=== PATIENT | female | born 1990 | race American Indian/Alaskan Native ===

== ENCOUNTER 2020-09-18 19:19 | Inpatient (IN) | payer MEDICAID ==
--- NOTE | 2020-09-18 23:52 | Event Note ---
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 Further treatment and workup at subsequent clinical providers discretion. Patient/guardian urged not to elope from the ED as their condition may be serious if not clinically assessed and managed. Initial orders include: labs, urine, xr, ekg
--- NOTE | 2020-09-18 23:56 | XRay Report ---
CHEST 2 VIEWS INDICATION / CLINICAL INFORMATION: SOB and chest pain. COMPARISON: None available. FINDINGS: SUPPORT DEVICES: None. HEART / MEDIASTINUM: No significant abnormality. LUNGS / PLEURA: No significant pulmonary or pleural abnormality. No pneumothorax. ADDITIONAL FINDINGS: No significant additional findings. IMPRESSION: 1. No acute findings. Signer Name: Rhett Rudolph MD Signed: 09/18/2020 11:52 PM Workstation Name: [id number]
[2020-09-19 00:56] LABS: Basophils % (Auto) 0.3 % (0.0-1.8); Hematocrit 35.1 % (30.3-42.9); Hemoglobin 11.8 gm/dl (10.1-14.3); Lymphocytes # (Auto) 1.8 K/mm3 (1.2-5.4); Lymphocytes % (Auto) 40.5 % (13.4-35.0); Mean Corpuscular HGB Conc 34 % (30-34); Mean Corpuscular Volume 77 fl (79-97); Monocytes # (Auto) 0.7 K/mm3 (0.0-0.8); Platelet Count 188 K/mm3 (140-440); Red Blood Count 4.54 M/mm3 (3.65-5.03)
[2020-09-19 01:17] LABS: Alanine Aminotransferase 15 units/L (7-56); Albumin 4.3 g/dL (3.9-5); BUN/Creatinine Ratio 14; Blood Urea Nitrogen 11 mg/dL (7-17); Calcium 8.9 mg/dL (8.4-10.2); Hemolysis Index 0
[2020-09-19 01:54] LABS: Bilirubin,Urine NEG (Negative); Blood,Urine LG (Negative); Color,Urine Yellow (Yellow); Mucus,Urine FEW /HPF; Urobilinogen,Urine < 2.0 mg/dL (<2.0)
--- NOTE | 2020-09-19 02:50 | Emergency Department Report ---
<CHELSY GILL III - Last Filed: 09/19/20 05:27> ED Chest Pain HPI - General Chief Complaint: Chest Pain Stated Complaint: EMESIS/SOB/UNABLE TO EAT PUI?: No Time Seen by Provider: 09/18/20 23:47 - Related Data Home Medications Medication Instructions Recorded Confirmed Last Taken Ondansetron [Zofran Odt] 4 mg PO Q6H PRN 01/02/15 09/20/20 01/01/15 Previous Rx's Medication Instructions Recorded Last Taken Type Ascorbic Acid [Vitamin C chew] 500 mg PO BID #30 tab.chew 09/23/20 Unknown Rx Famotidine [Pepcid] 20 mg PO BID #30 tablet 09/23/20 Unknown Rx Zinc Sulfate 0 mg PO BID #30 capsule 09/23/20 Unknown Rx guaiFENesin [Robitussin] 5 ml PO Q4H PRN #1 bottle 09/23/20 Unknown Rx Allergies Allergy/AdvReac Type Severity Reaction Status Date / Time No Known Allergies Allergy Verified 01/02/15 13:22 ED Past Medical Hx - Medications Home Medications: Home Medications Medication Instructions Recorded Confirmed Last Taken Type Ondansetron [Zofran Odt] 4 mg PO Q6H PRN 01/02/15 09/20/20 01/01/15 History Ascorbic Acid [Vitamin C chew] 500 mg PO BID #30 tab.chew 09/23/20 Unknown Rx Famotidine [Pepcid] 20 mg PO BID #30 tablet 09/23/20 Unknown Rx Zinc Sulfate 0 mg PO BID #30 capsule 09/23/20 Unknown Rx guaiFENesin [Robitussin] 5 ml PO Q4H PRN #1 bottle 09/23/20 Unknown Rx ED Course - Reevaluation(s) Reevaluation #1: I reviewed the findings and management of this patient in real-time and I have personally seen and examined this patient and participated in the decision making for this patient with the midlevel. Patient is a 29-year-old female that presents emergency room for chest pain. Patient has a history of PR x2 at age 16. Patient has an elevated heart score. I evaluated the patient. Patient CV exam shows normal S1-S2. Patient's lung sounds are clear to auscultation. Patient's abdominal exam is negative. Patient's chest wall is nontender. Patient will have a CTA since the patient's D-dimer is elevated. 09/19/20 04:07 ED Medical Decision Making - Lab Data Result diagrams: 09/19/20 00:30 09/19/20 00:30 ED Disposition Clinical Impression: Urinary tract infection, Chest pain, Shortness of breath, Viral pneumonia Disposition: OP ADMIT IP TO THIS HOSP Condition: Stable <COLETTE VASQUEZ - Last Filed: 09/19/20 07:25> ED Chest Pain HPI - General Source: patient Mode of arrival: Ambulatory Limitations: No Limitations - History of Present Illness Initial Comments: 29-year-old -[place] female comes in complaining of shortness of breath with exertion, chest tightness cough with mucus production, nausea vomiting. Patient states that she cannot keep anything down. Patient reports she is vaccinated for Covid. She denies any abdominal pain no pelvic pain no urinary frequency urgency. She is currently on no control has not recently travel ed. She does have a significant past medical history of a heart attack at 16x3. Has a history of hypertension but is currently on no medications. She reports she has had a tubal ligation. She is 3 para to 3. Last menstrual period was 09/08/2020. MD Complaint: chest pain -: This morning Onset: during exertion Quality: tightness Improves With: nothing Worsens With: exertion re: nausea, vomting Other Symptoms: cough Treatments Prior to Arrival: none Aspirin use within the Past 7 Days: (0) No Heart Score - HEART Score History: Moderately suspicious EKG: Non-specific Age: < 45 Risk factors: > 3 risk factors or hx of atherosclerotic disease Troponin: < normal limit HEART Score: 4 - EKG Read Time Time EKG Completed: 22:45 EKG Read Time: 22:48 ED Review of Systems Comment: All other systems reviewed and negative ED Past Medical Hx - Past Medical History Previous Medical History?: Yes Hx Hypertension: Yes (PI) Hx Heart Attack/AMI: Yes (1999) Hx Congestive Heart Failure: ("left chamber of my heart was clogged.") Hx Diabetes: No Hx Deep Vein Thrombosis: No Hx Renal Disease: No Hx Sickle Cell Disease: No Hx Seizures: No Hx Asthma: No (hx of bronchitis) Hx HIV: No - Surgical History Past Surgical History?: Yes Additional Surgical History: D&C x 1 - Social History Smoking Status: Never Smoker ED Physical Exam - General Limitations: No Limitations General appearance: alert, in no apparent distress - Head Head exam: Present: atraumatic, normocephalic - Eye Eye exam: Present: normal appearance - ENT ENT exam: Present: mucous membranes moist, normal external ear exam - Neck Neck exam: Present: normal inspection, full ROM - Respiratory Respiratory exam: Present: normal lung sounds bilaterally. Absent: chest wall tenderness, accessory muscle use - Cardiovascular Cardiovascular Exam: Present: tachycardia - GI/Abdominal GI/Abdominal exam: Present: soft. Absent: distended, tenderness - Extremities Exam Extremities exam: Present: normal inspection, full ROM - Back Exam Back exam: Present: normal inspection - Neurological Exam Neurological exam: Present: alert, oriented X3, normal gait - Psychiatric Psychiatric exam: Present: normal affect, normal mood - Skin Skin exam: Present: warm, dry, intact, normal color. Absent: rash ED Course - Consultations Consultation #1: 09/19/20 07:27 Spoke with on-call hospitalist is excepted admission and asked to place it under Dr. Shu alcantar orders have been placed JIMENEZ score - Jimenez Score Age > 65: (0) No Aspirin use within the Past 7 Days: (0) No 3 or more CAD Risk Factors: (0) No 2 or more Angina events in past 24 hrs: (0) No Known CAD with more than 50% Stenosis: (0) No Elevated Cardiac Markers: (0) No ST Deviation Greater than 0.5mm: (0) No JIMENEZ Score: 0 ED Medical Decision Making - Lab Data Result diagrams: 09/19/20 00:30 09/19/20 00:30 Laboratory Tests 09/18/20 09/19/20 09/19/20 Unknown 00:30 00:30 WBC 4.4 L RBC 4.54 Hgb 11.8 Hct 35.1 MCV 77 L MCH 26 L MCHC 34 RDW 17.0 H Plt Count 188 Lymph % (Auto) 40.5 H [place] % (Auto) 16.0 H Eos % (Auto) 0.0 Baso % (Auto) 0.3 Lymph # (Auto) 1.8 [place] # (Auto) 0.7 Eos # (Auto) 0.0 Baso # (Auto) 0.0 Seg Neutrophils % 43.2 Seg Neutrophils # 1.9 D-Dimer 546.68 H Sodium Potassium Chloride Carbon Dioxide Anion Gap BUN Creatinine Estimated GFR BUN/Creatinine Ratio Glucose Calcium Total Bilirubin AST ALT Alkaline Phosphatase Troponin T NT-Pro-B Natriuret Pep Total Protein Albumin Albumin/Globulin Ratio Lipase HCG, Qual Urine Color Yellow Urine Turbidity Slightly-cloudy Urine pH 5.0 Ur Specific [place] 1.017 Urine Protein 30 mg/dl Urine Glucose (UA) Neg Urine Ketones Tr Urine Blood Lg Urine Nitrite Neg Urine Bilirubin Neg Urine Urobilinogen < 2.0 Ur Leukocyte Esterase Sm Urine WBC (Auto) 45.0 H Urine RBC (Auto) 10.0 U Epithel Cells (Auto) 12.0 Urine Mucus Few 09/19/20 09/19/20 09/19/20 00:30 00:30 00:30 WBC RBC Hgb Hct MCV MCH MCHC RDW Plt Count Lymph % (Auto) [place] % (Auto) Eos % (Auto) Baso % (Auto) Lymph # (Auto) [place] # (Auto) Eos # (Auto) Baso # (Auto) Seg Neutrophils % Seg Neutrophils # D-Dimer Sodium 137 Potassium 4.0 Chloride 101.3 Carbon Dioxide 22 Anion Gap 18 BUN 11 Creatinine 0.8 Estimated GFR > 60 BUN/Creatinine Ratio 14 Glucose 89 Calcium 8.9 Total Bilirubin 0.30 AST 24 ALT 15 Alkaline Phosphatase 52 Troponin T < 0.010 NT-Pro-B Natriuret Pep 121.2 Total Protein 8.3 H Albumin 4.3 Albumin/Globulin Ratio 1.1 Lipase 22 HCG, Qual Negative Urine Color Urine Turbidity Urine pH Ur Specific [place] Urine Protein Urine Glucose (UA) Urine Ketones Urine Blood Urine Nitrite Urine Bilirubin Urine Urobilinogen Ur Leukocyte Esterase Urine WBC (Auto) Urine RBC (Auto) U Epithel Cells (Auto) Urine Mucus - Radiology Data Radiology results: report reviewed [facility] [address] [place] [address] XRay Report Signed Patient: QIAN PRADO MR#: [id number] : 1990 Acct:[id number] Age/Sex: 29 / F ADM Date: 09/18/20 Loc: ED Attending Dr: Ordering Physician: ED MD RINA Date of Service: 09/18/20 Procedure(s): XR chest routine 2V Accession Number(s): [id number] cc: ED MD RINA Fluoro Time In Minutes: CHEST 2 VIEWS INDICATION / CLINICAL INFORMATION: SOB and chest pain. COMPARISON: None available. FINDINGS: SUPPORT DEVICES: None. HEART / MEDIASTINUM: No significant abnormality. LUNGS / PLEURA: No significant pulmonary or pleural abnormality. No pneumothorax. ADDITIONAL FINDINGS: No significant additional findings. IMPRESSION: 1. No acute findings. Signer Name: Rhett Rudolph MD Signed: 09/18/2020 11:52 PM Workstation Name: [id number] Transcribed By: DT Dictated By: Wai Rudolph MD Electronically Authenticated By: Wai Rudolph MD Signed Date/Time: 09/18/202351 DD/ 50 TD/TT: Study Comments [facility] [address] [place] [address] Cat Scan Report Signed Patient: QIAN PRADO MR#: [id number] : 1990 Acct:[id number] Age/Sex: 29 / F ADM Date: 09/18/20 Loc: ED Attending Dr: Ordering Physician: BUCK TORRES Date of Service: 09/19/20 Procedure(s): CT angio chest Accession Number(s): [id number] cc: BUCK TORRES CTA CHEST WITH CONTRAST INDICATION / CLINICAL INFORMATION: Shortness of breath chest pain / elevated D- dimer. TECHNIQUE: Axial CT images were obtained through the chest after injection of 100 mL Omnipaque 350 IV contrast. 3 plane MIP and/or 3D reconstructions were produced. All CT scans at this location are performed using CT dose reduction for ALARA by means of automated exposure control. COMPARISON: None available. FINDINGS: PULMONARY ARTERIES: No pulmonary emboli. THORACIC AORTA: No significant abnormality. HEART: No significant abnormality. CORONARY ARTERY CALCIFICATION: None. MEDIASTINUM / DOROTEO: No significant abnormality. PLEURA: No pleural effusion. No pneumothorax. LUNGS: Small, patchy, bibasilar groundglass densities. ADDITIONAL FINDINGS: None. UPPER ABDOMEN: No acute findings. SKELETAL STRUCTURES: No significant osseous abnormality. IMPRESSION: 1. No CT evidence for pulmonary embolism. 2. Bibasilar groundglass densities may represent early/mild atypical/viral pneumonia. Signer Name: Rhett Rudolph MD Signed: 09/19/2020 5:31 AM Workstation Name: [id number] Transcribed By: DT Dictated By: Wai Rudolph MD Electronically Authenticated By: Wai Rudolph MD Signed Date/Time: 09/19/20530 DD/ 8 TD/TT: Critical Care Time: Yes (35) ED Disposition Is pt being admited?: Yes Does the pt Need Aspirin: No <JAIME BUTCHER S - Last Filed: 09/26/20 07:58> ED Review of Systems ROS: Stated complaint: EMESIS/SOB/UNABLE TO EAT Other details as noted in HPI ED Course Vital Signs 09/18/20 09/19/20 09/19/20 22:39 07:33 09:56 Temperature 98.9 F Pulse Rate 99 H 76 81 Respiratory 18 Rate Blood Pressure 154/92 114/69 125/80 Blood Pressure [Right] O2 Sat by Pulse 98 99 99 Oximetry 09/19/20 09/20/20 13:19 00:22 Temperature 98.2 F Pulse Rate 80 85 Respiratory 16 Rate Blood Pressure Blood Pressure 125/80 131/51 [Right] O2 Sat by Pulse 99 100 Oximetry ED Medical Decision Making - Lab Data Result diagrams: 09/20/20 09:18 09/20/20 09:18 Critical care attestation.: If time is entered above; I have spent that time in minutes in the direct care of this critically ill patient, excluding procedure time.
[2020-09-19] MEDS ORDERED: ONDANSETRON 4 MG/2 ML INJ IV ONE (02:51)
[2020-09-19] MEDS ORDERED: SODIUM CHLORIDE 0.9% 1000 ML 1,000 ML IV ONE (02:51)
--- NOTE | 2020-09-19 05:36 | Cat Scan Report ---
CTA CHEST WITH CONTRAST INDICATION / CLINICAL INFORMATION: Shortness of breath chest pain / elevated D-dimer. TECHNIQUE: Axial CT images were obtained through the chest after injection of 100 mL Omnipaque 350 IV contrast. 3 plane MIP and/or 3D reconstructions were produced. All CT scans at this location are per formed using CT dose reduction for ALARA by means of automated exposure control. COMPARISON: None available. FINDINGS: PULMONARY ARTERIES: No pulmonary emboli. THORACIC AORTA: No significant abnormality. HEART: No significant abnormality. CORONARY ARTERY CALCIFICATION: None. MEDIASTINUM / DOROTEO: No significant abnormality. PLEURA: No pleural effusion. No pneumothorax. LUNGS: Small, patchy, bibasilar groundglass densities. ADDITIONAL FINDINGS: None. UPPER ABDOMEN: No acute findings. SKELETAL STRUCTURES: No significant osseous abnormality. IMPRESSION: 1. No CT evidence for pulmonary embolism. 2. Bibasilar groundglass densities may represent early/mild atypical/viral pneumonia. Signer Name: Rhett Rudolph MD Signed: 09/19/2020 5:31 AM Workstation Name: [id number]
--- NOTE | 2020-09-19 11:12 | Electrocardiograph Report ---
[facility] Test Date: 2020-09-18 Test Time: 22:46:44 Pat Name: QIAN PRADO Department: Room: [facility] Gender: F Manual Tester: REKHA : 1990 Requested By: CHELSY GILL III Order Number: [id number] Reading MD: Edgar Styles Measurements Intervals [place] Rate: 99 P: 64 NE: 149 QRS: 27 QRSD: 83 T: 36 QT: 359 QTc: 460 Interpretive Statements Sinus rhythm Probable left atrial enlargement Probable left ventricular hypertrophy No previous ECG available for comparison Electronically Signed On 09-19-2020 11:12:28 EDT by Edgar Styles
--- NOTE | 2020-09-20 07:15 | History and Physical Report ---
History of Present Illness Date of examination: 09/19/20 Date of admission: 09/19/20 07:28 Chief complaint: Nausea and vomiting for 1 day History of present illness: Patient has nausea and vomiting for 1 day. Vomited about 3-4 times. Also has chest pain. No shortness of breath. Chest pain is aggravated because of reflux. No diaphoresis. No radiation. No significant past medical history. Past History Past Medical History: No medical history Past Surgical History: No surgical history Social history: lives with family, full code Family history: hypertension Medications and Allergies Allergies Allergy/AdvReac Type Severity Reaction Status Date / Time No Known Allergies Allergy Verified 01/02/15 13:22 Home Medications Medication Instructions Recorded Confirmed Last Taken Type Vit-Fe Fumar-FA [ 1 tab PO QDAY #90 tablet 11/22/14 01/02/15 01/02/15 Rx Vitamin] Promethazine [Phenergan TAB] 25 mg PO Q6HR PRN #20 tab 11/22/14 01/02/15 01/01/15 Rx Nitrofurantoin [place]/M-Cryst 100 mg PO Q12HR #14 capsule 01/02/15 Unknown Rx [Macrobid CAP] Ondansetron [Zofran ODT TAB] 4 mg PO Q8HR #14 tab.rapdis 01/02/15 Unknown Rx Ondansetron [Zofran Odt] 4 mg PO Q6H PRN 01/02/15 01/02/15 01/01/15 History labetaloL [Normodyne TAB] 50 mg PO BID 01/02/15 01/02/15 12/12/14 History cephALEXin [Keflex] 500 mg PO Q12HR #20 cap 01/16/15 Unknown Rx Active Meds: Active Medications Acetaminophen (Acetaminophen 325 Mg Tab) 650 mg PO Q4H PRN PRN Reason: Pain MILD(1-3)/Fever >100.5/YOUNG Famotidine (Famotidine 20 Mg Tab) 20 mg PO BID [place] Heparin Sodium (Porcine) (Heparin 5,000 Unit/1 Ml Vial) 5,000 unit SUB-Q Q12HR [place] Hydromorphone HCl (Hydromorphone 1 Mg/1 Ml Inj) 0.5 mg IV Q3H PRN PRN Reason: Pain , Severe (7-10) Metoclopramide HCl (Metoclopramide 10 Mg/2 Ml Inj) 10 mg IV Q6H PRN PRN Reason: Nausea And Vomiting Ondansetron HCl (Ondansetron 4 Mg/2 Ml Inj) 4 mg IV Q8H PRN PRN Reason: Nausea And Vomiting Oxycodone/Acetaminophen (Oxycodone /Acetaminophen 5-325mg Tab) 1 tab PO Q6H PRN PRN Reason: Pain, Moderate (4-6) Sodium Chloride (Sodium Chloride 0.9% 10 Ml Flush Syringe) 10 ml IV BID [place] Sodium Chloride (Sodium Chloride 0.9% 10 Ml Flush Syringe) 10 ml IV PRN PRN PRN Reason: LINE FLUSH Review of Systems All systems: negative Exam - Constitutional Vitals: Temp Pulse Resp BP Pulse Ox 98.2 F 82 20 124/82 98 09/20/20 05:42 09/20/20 05:42 09/20/20 05:42 09/20/20 05:42 09/20/20 05:42 General appearance: Present: no acute distress, well-nourished - EENT Eyes: Present: PERRL ENT: hearing intact, clear oral mucosa - Neck Neck: Present: supple, normal ROM - Respiratory Respiratory effort: normal Respiratory: bilateral: CTA - Cardiovascular Heart rate: 78 Rhythm: regular Heart Sounds: Present: S1 & S2. Absent: rub, click - Extremities Extremities: pulses symmetrical, No edema Peripheral Pulses: within normal limits - Abdominal General gastrointestinal: Present: soft, non-tender, non-distended, normal bowel sounds Female genitourinary: Present: normal - Integumentary Integumentary: Present: clear, warm, dry - Musculoskeletal Musculoskeletal: gait normal, strength equal bilaterally - Psychiatric Psychiatric: appropriate mood/affect, intact judgment & insight - Neurologic Neurologic: CNII-XII intact, moves all extremities HEART Score - HEART Score EKG: Non-specific Age: < 45 Risk factors: > 3 risk factors or hx of atherosclerotic disease Troponin: Troponin T < 0.010 ng/mL (0.00-0.029) 09/19/20 00:30 Troponin: < normal limit Results - Labs CBC & Chem 7: 09/19/20 00:30 09/19/20 00:30 Labs: Laboratory Last Values WBC 4.4 K/mm3 (4.5-11.0) L 09/19/20 00:30 RBC 4.54 M/mm3 (3.65-5.03) 09/19/20 00:30 Hgb 11.8 gm/dl (10.1-14.3) 09/19/20 00:30 Hct 35.1 % (30.3-42.9) 09/19/20 00:30 MCV 77 fl (79-97) L 09/19/20 00:30 MCH 26 pg (28-32) L 09/19/20 00:30 MCHC 34 % (30-34) 09/19/20 00:30 RDW 17.0 % (13.2-15.2) H 09/19/20 00:30 Plt Count 188 K/mm3 (140-440) 09/19/20 00:30 Lymph % (Auto) 40.5 % (13.4-35.0) H 09/19/20 00:30 [place] % (Auto) 16.0 % (0.0-7.3) H 09/19/20 00:30 Eos % (Auto) 0.0 % (0.0-4.3) 09/19/20 00:30 Baso % (Auto) 0.3 % (0.0-1.8) 09/19/20 00:30 Lymph # (Auto) 1.8 K/mm3 (1.2-5.4) 09/19/20 00:30 [place] # (Auto) 0.7 K/mm3 (0.0-0.8) 09/19/20 00:30 Eos # (Auto) 0.0 K/mm3 (0.0-0.4) 09/19/20 00:30 Baso # (Auto) 0.0 K/mm3 (0.0-0.1) 09/19/20 00:30 Seg Neutrophils % 43.2 % (40.0-70.0) 09/19/20 00:30 Seg Neutrophils # 1.9 K/mm3 (1.8-7.7) 09/19/20 00:30 D-Dimer 546.68 ng/mlDDU (0-234) H 09/19/20 00:30 Sodium 137 mmol/L (137-145) 09/19/20 00:30 Potassium 4.0 mmol/L (3.6-5.0) 09/19/20 00:30 Chloride 101.3 mmol/L (98-107) 09/19/20 00:30 Carbon Dioxide 22 mmol/L (22-30) 09/19/20 00:30 Anion Gap 18 mmol/L 09/19/20 00:30 BUN 11 mg/dL (7-17) 09/19/20 00:30 Creatinine 0.8 mg/dL (0.6-1.2) 09/19/20 00:30 Estimated GFR > 60 ml/min 09/19/20 00:30 BUN/Creatinine Ratio 14 % 09/19/20 00:30 Glucose 89 mg/dL (65-100) 09/19/20 00:30 Calcium 8.9 mg/dL (8.4-10.2) 09/19/20 00:30 Total Bilirubin 0.30 mg/dL (0.1-1.2) 09/19/20 00:30 AST 24 units/L (5-40) 09/19/20 00:30 ALT 15 units/L (7-56) 09/19/20 00:30 Alkaline Phosphatase 52 units/L (35-129) 09/19/20 00:30 Troponin T < 0.010 ng/mL (0.00-0.029) 09/19/20 00:30 NT-Pro-B Natriuret Pep 121.2 pg/mL (0-450) 09/19/20 00:30 Total Protein 8.3 g/dL (6.3-8.2) H 09/19/20 00:30 Albumin 4.3 g/dL (3.9-5) 09/19/20 00:30 Albumin/Globulin Ratio 1.1 % 09/19/20 00:30 Lipase 22 units/L (13-60) 09/19/20 00:30 HCG, Qual Negative (Negative) 09/19/20 00:30 Urine Color Yellow (Yellow) 09/18/20 Unknown Urine Turbidity Slightly-cloudy (Clear) 09/18/20 Unknown Urine pH 5.0 (5.0-7.0) 09/18/20 Unknown Ur Specific [place] 1.017 (1.003-1.030) 09/18/20 Unknown Urine Protein 30 mg/dl mg/dL (Negative) 09/18/20 Unknown Urine Glucose (UA) Neg mg/dL (Negative) 09/18/20 Unknown Urine Ketones Tr mg/dL (Negative) 09/18/20 Unknown Urine Blood Lg (Negative) 09/18/20 Unknown Urine Nitrite Neg (Negative) 09/18/20 Unknown Urine Bilirubin Neg (Negative) 09/18/20 Unknown Urine Urobilinogen < 2.0 mg/dL (<2.0) 09/18/20 Unknown Ur Leukocyte Esterase Sm (Negative) 09/18/20 Unknown Urine WBC (Auto) 45.0 /HPF (0.0-6.0) H 09/18/20 Unknown Urine RBC (Auto) 10.0 /HPF (0.0-6.0) 09/18/20 Unknown U Epithel Cells (Auto) 12.0 /HPF (0-13.0) 09/18/20 Unknown Urine Mucus Few /HPF 09/18/20 Unknown Microbiology: Microbiology 09/18/20 Unknown Urine,Clean Catch Urine Culture - Preliminary Ness/IV: Voiding Method Toilet Assessment and Plan Advance Directives: Yes (Full code) - Patient Problems (1) Intractable nausea and vomiting Current Visit: Yes Status: Acute Plan to address problem: IV fluids IV Reglan and IV Zofran for now. IV famotidine. (2) Urinary tract infection Current Visit: Yes Status: Acute Qualifiers: Urinary tract infection type: acute cystitis Plan to address problem: On IV Rocephin for now (3) Chest pain Current Visit: Yes Status: Acute Plan to address problem: Secondary to reflux Discharge on Protonix (4) GERD (gastroesophageal reflux disease) Current Visit: Yes Status: Acute Qualifiers: Esophagitis presence: without esophagitis Qualified Code(s): K21.9 - Gastro-esophageal reflux disease without esophagitis Plan to address problem: On IV famotidine (5) DVT prophylaxis Current Visit: Yes Status: Acute Plan to address problem: On heparin and GI prophylaxis
[2020-09-20] MEDS ORDERED: oxyCODONE /ACETAMINOPHEN 5-325MG TAB PO PRN (08:00)
[2020-09-20] MEDS ORDERED: METOCLOPRAMIDE 10 MG/2 ML INJ IV PRN (08:00)
[2020-09-20] MEDS ORDERED: ACETAMINOPHEN 325 MG TAB PO PRN (08:00)
[2020-09-20] MEDS: HYDROmorphone 1 MG/1 ML INJ IV PRN ×2 (08:17→20:16)
[2020-09-20] MEDS: cefTRIAXone/NS 2 GM/100 ML 2 GM/100 ML BAG IV SCH (09:45)
[2020-09-20] MEDS: HEPARIN 5,000 UNIT/1 ML VIAL SUB-Q SCH ×2 (09:45→21:21)
[2020-09-20] MEDS ORDERED: FAMOTIDINE 20 MG TAB PO SCH (10:00)
[2020-09-20] MEDS ORDERED: FAMOTIDINE 20 MG/2 ML INJ IV SCH (10:00)
[2020-09-20 10:13] LABS: Hematocrit 33.2 % (30.3-42.9); Hemoglobin 11.1 gm/dl (10.1-14.3); Mean Corpuscular HGB Conc 34 % (30-34); Mean Corpuscular Volume 77 fl (79-97); Platelet Count 158 K/mm3 (140-440); Red Blood Count 4.33 M/mm3 (3.65-5.03)
--- NOTE | 2020-09-20 10:18 | Progress Note ---
Assessment and Plan Assessment and plan: --PUI; high suspicion for COVID-19 infection Current Visit: Yes Status: Acute Contact and droplet isolation, Martin PCR test sent pending report Continue supportive care If positive will consult ID - Intractable nausea and vomiting Current Visit: Yes Status: Acute Plan to address problem: IV fluids IV Reglan and IV Zofran for now. IV famotidine. -- Urinary tract infection Current Visit: Yes Status: Acute On IV Rocephin for now --Atypical chest pain Current Visit: Yes Status: Acute Secondary to reflux Discharge on Protonix --Elevated D-dimers; Current Visit: Yes Status: Acute CTA chest negative for PE Check lower extremity venous Doppler to rule out DVT --GERD (gastroesophageal reflux disease) Current Visit: Yes Status: Acute On IV Protonix --DVT prophylaxis Current Visit: Yes Status: Acute Subcu heparin and GI prophylaxis Closely monitor patient and adjust management as needed. Follow martin PCR test and adjust the management as needed Plan of care reviewed with the patient and her nurse History Interval history: I have observed strict isolation precautions and PPE protocols observed per COVID-19 guidelines Patient admitted as PUI to rule out COVID-19 Patient is cachectic. Mild shortness of breath Martin PCR test is sent pending report Patient is in isolation wearing mask No new complaints Vital signs noted Hospitalist Physical - Constitutional Vitals: Temp Pulse Resp BP Pulse Ox 98.3 F 72 18 122/81 95 09/20/20 08:19 09/20/20 08:19 09/20/20 08:19 09/20/20 08:19 09/20/20 08:40 General appearance: Present: no acute distress, well-nourished - EENT Eyes: Present: PERRL, EOM intact - Neck Neck: Present: supple, normal ROM - Respiratory Respiratory effort: normal Respiratory: bilateral: diminished, rhonchi, negative: rales, wheezing - Cardiovascular Rhythm: regular Heart Sounds: Present: S1 & S2 - Extremities Extremities: no ischemia, No edema - Abdominal General gastrointestinal: soft, non-tender, non-distended, normal bowel sounds - Integumentary Integumentary: Present: clear, warm - Psychiatric Psychiatric: appropriate mood/affect, cooperative - Neurologic Neurologic: CNII-XII intact, moves all extremities HEART Score - HEART Score EKG: Non-specific Age: < 45 Risk factors: > 3 risk factors or hx of atherosclerotic disease Troponin: Troponin T < 0.010 ng/mL (0.00-0.029) 09/19/20 00:30 Troponin: < normal limit Results - Labs CBC & Chem 7: 09/20/20 09:18 09/20/20 09:18 Labs: Laboratory Last Values WBC 3.5 K/mm3 (4.5-11.0) L 09/20/20 09:18 RBC 4.33 M/mm3 (3.65-5.03) 09/20/20 09:18 Hgb 11.1 gm/dl (10.1-14.3) 09/20/20 09:18 Hct 33.2 % (30.3-42.9) 09/20/20 09:18 MCV 77 fl (79-97) L 09/20/20 09:18 MCH 26 pg (28-32) L 09/20/20 09:18 MCHC 34 % (30-34) 09/20/20 09:18 RDW 17.0 % (13.2-15.2) H 09/20/20 09:18 Plt Count 158 K/mm3 (140-440) 09/20/20 09:18 Lymph % (Auto) 40.5 % (13.4-35.0) H 09/19/20 00:30 [place] % (Auto) Cash Application Clerk 09/20/20 09:18 Eos % (Auto) 0.0 % (0.0-4.3) 09/19/20 00:30 Baso % (Auto) 0.3 % (0.0-1.8) 09/19/20 00:30 Lymph # (Auto) 1.8 K/mm3 (1.2-5.4) 09/19/20 00:30 [place] # (Auto) 0.7 K/mm3 (0.0-0.8) 09/19/20 00:30 Eos # (Auto) 0.0 K/mm3 (0.0-0.4) 09/19/20 00:30 Baso # (Auto) 0.0 K/mm3 (0.0-0.1) 09/19/20 00:30 Seg Neutrophils % 43.2 % (40.0-70.0) 09/19/20 00:30 Seg Neutrophils # 1.9 K/mm3 (1.8-7.7) 09/19/20 00:30 D-Dimer 546.68 ng/mlDDU (0-234) H 09/19/20 00:30 Sodium 137 mmol/L (137-145) 09/19/20 00:30 Potassium 4.0 mmol/L (3.6-5.0) 09/19/20 00:30 Chloride 101.3 mmol/L (98-107) 09/19/20 00:30 Carbon Dioxide 22 mmol/L (22-30) 09/19/20 00:30 Anion Gap 18 mmol/L 09/19/20 00:30 BUN 11 mg/dL (7-17) 09/19/20 00:30 Creatinine 0.8 mg/dL (0.6-1.2) 09/19/20 00:30 Estimated GFR > 60 ml/min 09/19/20 00:30 BUN/Creatinine Ratio 14 % 09/19/20 00:30 Glucose 89 mg/dL (65-100) 09/19/20 00:30 Calcium 8.9 mg/dL (8.4-10.2) 09/19/20 00:30 Total Bilirubin 0.30 mg/dL (0.1-1.2) 09/19/20 00:30 AST 24 units/L (5-40) 09/19/20 00:30 ALT 15 units/L (7-56) 09/19/20 00:30 Alkaline Phosphatase 52 units/L (35-129) 09/19/20 00:30 Troponin T < 0.010 ng/mL (0.00-0.029) 09/19/20 00:30 NT-Pro-B Natriuret Pep 121.2 pg/mL (0-450) 09/19/20 00:30 Total Protein 8.3 g/dL (6.3-8.2) H 09/19/20 00:30 Albumin 4.3 g/dL (3.9-5) 09/19/20 00:30 Albumin/Globulin Ratio 1.1 % 09/19/20 00:30 Lipase 22 units/L (13-60) 09/19/20 00:30 HCG, Qual Negative (Negative) 09/19/20 00:30 Urine Color Yellow (Yellow) 09/18/20 Unknown Urine Turbidity Slightly-cloudy (Clear) 09/18/20 Unknown Urine pH 5.0 (5.0-7.0) 09/18/20 Unknown Ur Specific [place] 1.017 (1.003-1.030) 09/18/20 Unknown Urine Protein 30 mg/dl mg/dL (Negative) 09/18/20 Unknown Urine Glucose (UA) Neg mg/dL (Negative) 09/18/20 Unknown Urine Ketones Tr mg/dL (Negative) 09/18/20 Unknown Urine Blood Lg (Negative) 09/18/20 Unknown Urine Nitrite Neg (Negative) 09/18/20 Unknown Urine Bilirubin Neg (Negative) 09/18/20 Unknown Urine Urobilinogen < 2.0 mg/dL (<2.0) 09/18/20 Unknown Ur Leukocyte Esterase Sm (Negative) 09/18/20 Unknown Urine WBC (Auto) 45.0 /HPF (0.0-6.0) H 09/18/20 Unknown Urine RBC (Auto) 10.0 /HPF (0.0-6.0) 09/18/20 Unknown U Epithel Cells (Auto) 12.0 /HPF (0-13.0) 09/18/20 Unknown Urine Mucus Few /HPF 09/18/20 Unknown Microbiology: Microbiology 09/18/20 Unknown Urine,Clean Catch Urine Culture - Preliminary Ness/IV: Voiding Method Toilet Active Medications - Current Medications Current Medications: Generic Name Dose Route Start Last Admin Trade Name Freq PRN Reason Stop Dose Admin Acetaminophen 650 mg 09/20/20 08:00 Acetaminophen 325 Mg Tab PO Q4H PRN Pain MILD(1-3)/Fever >100.5/YOUNG Famotidine 20 mg 09/20/20 10:00 09/20/20 09:45 Famotidine 20 Mg/2 Ml Inj IV 20 mg BID RYLAND Administration Heparin Sodium (Porcine) 5,000 unit 09/20/20 10:00 09/20/20 09:45 Heparin 5,000 Unit/1 Ml Vial SUB-Q 5,000 unit Q12HR RYLAND Administration Hydromorphone HCl 0.5 mg 09/20/20 08:00 09/20/20 08:17 Hydromorphone 1 Mg/1 Ml Inj IV 0.5 mg Q3H PRN Administration Pain , Severe (7-10) Ceftriaxone Sodium 2 gm in 100 mls @ 200 mls/hr 09/20/20 10:00 09/20/20 09:45 Rocephin/Ns 2 Gm/100 Ml IV 200 mls/hr Q24H RYLAND Administration Protocol Labetalol HCl 50 mg 09/20/20 10:00 09/20/20 09:45 Labetalol 100 Mg Tab PO 50 mg BID RYLAND Administration Metoclopramide HCl 10 mg 09/20/20 08:00 Metoclopramide 10 Mg/2 Ml Inj IV Q6H PRN Nausea And Vomiting Ondansetron HCl 4 mg 09/20/20 08:00 Ondansetron 4 Mg/2 Ml Inj IV Q8H PRN Nausea And Vomiting Oxycodone/Acetaminophen 1 tab 09/20/20 08:00 Oxycodone /Acetaminophen 5-325mg Tab PO Q6H PRN Pain, Moderate (4-6) Sodium Chloride 10 ml 09/20/20 10:00 09/20/20 09:45 Sodium Chloride 0.9% 10 Ml Flush Syringe IV 10 ml BID RYLAND Administration Sodium Chloride 10 ml 09/20/20 07:07 Sodium Chloride 0.9% 10 Ml Flush Syringe IV PRN PRN LINE FLUSH
[2020-09-20 10:41] LABS: Creatine Kinase MB 1.8 ng/mL (0.0-4.0)
[2020-09-20] MEDS: ONDANSETRON 4 MG/2 ML INJ IV PRN ×2 (10:42→21:25)
[2020-09-20 10:50] LABS: Alanine Aminotransferase 13 units/L (7-56); Albumin 4.1 g/dL (3.9-5); BUN/Creatinine Ratio 16; Blood Urea Nitrogen 11 mg/dL (7-17); Hemolysis Index 0
[2020-09-20 10:57] LABS: Total Cells Counted 100
[2020-09-20 10:58] LABS: Anisocytosis 1+; Platelet Estimate Consistent w Auto
[2020-09-20 15:55] LABS: Creatine Kinase MB 1.7 ng/mL (0.0-4.0)
--- NOTE | 2020-09-20 15:58 | Event Note ---
Date: 09/20/20 Martin PCR test is positive for COVID-19.ID consult, requested inflammatory markers Continue contact and droplet isolation, transfer the patient to [facility][COVID- 19 floor] Patient's D-dimer is already high, CTA chest negative for PE, request lower extremity venous Doppler to rule out DVT Patient is not hypoxemic, will check resting and ambulatory room air O2 sats If hypoxemic we will start dexamethasone and remdesivir per protocol
--- NOTE | 2020-09-20 16:57 | Event Note ---
Date: 09/20/20 I called next of kin patient's mother Ms. Shashi Pettit at [phone] and discussed in detail patient's condition treatment plan tests and reports, I also encouraged the close family members to get tested for COVID-19 I answered all her questions and encouraged her to call back if she has any new concerns
[2020-09-20] MEDS: FAMOTIDINE 20 MG TAB PO SCH (21:25)
[2020-09-20 21:44] LABS: Creatine Kinase MB 1.8 ng/mL (0.0-4.0)
[2020-09-21 07:04] LABS: C-Reactive Protein 0.2 mg/dL (0.00-1.30)
[2020-09-21] MEDS: cefTRIAXone/NS 2 GM/100 ML 2 GM/100 ML BAG IV SCH (09:59)
[2020-09-21] MEDS: HEPARIN 5,000 UNIT/1 ML VIAL SUB-Q SCH ×2 (10:00→21:43)
[2020-09-21] MEDS: FAMOTIDINE 20 MG TAB PO SCH ×2 (10:01→21:42)
[2020-09-21] MEDS: HYDROmorphone 1 MG/1 ML INJ IV PRN (14:25)
--- NOTE | 2020-09-21 17:54 | Progress Note ---
Assessment and Plan Assessment and plan: I called next of kin patient's mother Ms. Shashi Pettit at [phone] and discussed in detail patient's condition treatment plan tests and reports, I also encouraged the close family members to get tested for COVID-19 I answered all her questions and encouraged her to call back if she has any new concerns --COVID-19 infection Current Visit: Yes Status: Acute Contact and droplet isolation, Donis PCR test positive Isolation precautions Patient is saturating well on room air No indication for dexamethasone No indication for remdesivir Check inflammatory markers ID consult - Intractable nausea and vomiting Current Visit: Yes Status: Acute Plan to address problem: IV fluids IV Reglan and IV Zofran for now. IV famotidine. -- Urinary tract infection Current Visit: Yes Status: Acute On IV Rocephin for now --Atypical chest pain Current Visit: Yes Status: Acute Secondary to reflux Discharge on Protonix --Elevated D-dimers; Current Visit: Yes Status: Acute CTA chest negative for PE Check lower extremity venous Doppler to rule out DVT --GERD (gastroesophageal reflux disease) Current Visit: Yes Status: Acute On IV Protonix --DVT prophylaxis Current Visit: Yes Status: Acute Subcu heparin and GI prophylaxis Closely monitor patient and adjust management as needed. Follow donis PCR test and adjust the management as needed Plan of care reviewed with the patient and her nurse History Interval history: I have seen the patient from a distance in her room Patient's chart medications tests and reports reviewed Strict isolation precautions and PPE protocols followed Patient feels slightly better Saturating well on room air Vital signs noted Hospitalist Physical - Physical exam Narrative exam: I have seen the patient from a distance in her room Discussed with her her condition tests and reports Limited examination to prevent disease transmission - Constitutional Vitals: Temp Pulse Resp BP Pulse Ox 98.3 F 99 H 20 118/76 99 09/21/20 12:15 09/21/20 12:15 09/21/20 12:15 09/21/20 12:15 09/21/20 12:15 General appearance: Present: no acute distress, well-nourished, other (Limited examination to prevent disease transmission) - EENT ENT: other (Limited examination to prevent disease transmission) - Neck Neck: Present: other (Limited examination to prevent disease transmission) - Respiratory Respiratory effort: other (Limited examination to prevent disease transmission) - Extremities Extremity abnormal: other (Limited examination to prevent disease transmission) - Abdominal General gastrointestinal: other (Limited examination to prevent disease transmission) - Neurologic Neurologic: other (Limited examination to prevent disease transmission) HEART Score - HEART Score EKG: Non-specific Age: < 45 Risk factors: > 3 risk factors or hx of atherosclerotic disease Troponin: Troponin T 0.011 ng/mL (0.00-0.029) 09/20/20 20:46 Troponin: < normal limit Results - Labs CBC & Chem 7: 09/20/20 09:18 09/20/20 09:18 Labs: Laboratory Last Values WBC 3.5 K/mm3 (4.5-11.0) L 09/20/20 09:18 RBC 4.33 M/mm3 (3.65-5.03) 09/20/20 09:18 Hgb 11.1 gm/dl (10.1-14.3) 09/20/20 09:18 Hct 33.2 % (30.3-42.9) 09/20/20 09:18 MCV 77 fl (79-97) L 09/20/20 09:18 MCH 26 pg (28-32) L 09/20/20 09:18 MCHC 34 % (30-34) 09/20/20 09:18 RDW 17.0 % (13.2-15.2) H 09/20/20 09:18 Plt Count 158 K/mm3 (140-440) 09/20/20 09:18 Lymph % (Auto) 40.5 % (13.4-35.0) H 09/19/20 00:30 Person % (Auto) Bariatric Coordinator 09/20/20 09:18 Eos % (Auto) 0.0 % (0.0-4.3) 09/19/20 00:30 Baso % (Auto) 0.3 % (0.0-1.8) 09/19/20 00:30 Lymph # (Auto) 1.8 K/mm3 (1.2-5.4) 09/19/20 00:30 Person # (Auto) 0.7 K/mm3 (0.0-0.8) 09/19/20 00:30 Eos # (Auto) 0.0 K/mm3 (0.0-0.4) 09/19/20 00:30 Baso # (Auto) 0.0 K/mm3 (0.0-0.1) 09/19/20 00:30 Add Manual Diff Complete 09/20/20 09:18 Total Counted 100 09/20/20 09:18 Seg Neutrophils % 43.2 % (40.0-70.0) 09/19/20 00:30 Seg Neuts % (Manual) 59.0 % (40.0-70.0) 09/20/20 09:18 Lymphocytes % (Manual) 21.0 % (13.4-35.0) 09/20/20 09:18 Monocytes % (Manual) 20.0 % (0.0-7.3) H 09/20/20 09:18 Nucleated RBC % Not Reportable 09/20/20 09:18 Seg Neutrophils # 1.9 K/mm3 (1.8-7.7) 09/19/20 00:30 Seg Neutrophils # Man 2.1 K/mm3 (1.8-7.7) 09/20/20 09:18 Band Neutrophils # 0.0 K/mm3 09/20/20 09:18 Lymphocytes # (Manual) 0.7 K/mm3 (1.2-5.4) L 09/20/20 09:18 Abs React Lymphs (Man) 0.0 K/mm3 09/20/20 09:18 Monocytes # (Manual) 0.7 K/mm3 (0.0-0.8) 09/20/20 09:18 Eosinophils # (Manual) 0.0 K/mm3 (0.0-0.4) 09/20/20 09:18 Basophils # (Manual) 0.0 K/mm3 (0.0-0.1) 09/20/20 09:18 Metamyelocytes # 0.0 K/mm3 09/20/20 09:18 Myelocytes # 0.0 K/mm3 09/20/20 09:18 Promyelocytes # 0.0 K/mm3 09/20/20 09:18 Blast Cells # 0.0 K/mm3 09/20/20 09:18 WBC Morphology Not Reportable 09/20/20 09:18 Hypersegmented Neuts Not Reportable 09/20/20 09:18 Hyposegmented Neuts Not Reportable 09/20/20 09:18 Hypogranular Neuts Not Reportable 09/20/20 09:18 Smudge Cells Not Reportable 09/20/20 09:18 Toxic Granulation Not Reportable 09/20/20 09:18 Toxic Vacuolation Not Reportable 09/20/20 09:18 Dohle Bodies Not Reportable 09/20/20 09:18 Pelger-Huet Anomaly Not Reportable 09/20/20 09:18 Sidney Rods Not Reportable 09/20/20 09:18 Platelet Estimate Consistent w auto 09/20/20 09:18 Clumped Platelets Not Reportable 09/20/20 09:18 Plt Clumps, EDTA Not Reportable 09/20/20 09:18 Large Platelets Not Reportable 09/20/20 09:18 Giant Platelets Not Reportable 09/20/20 09:18 Platelet Satelliting Not Reportable 09/20/20 09:18 Plt Morphology Comment Not Reportable 09/20/20 09:18 RBC Morphology Not Reportable 09/20/20 09:18 Dimorphic RBCs Not Reportable 09/20/20 09:18 Polychromasia Not Reportable 09/20/20 09:18 Hypochromasia Not Reportable 09/20/20 09:18 Poikilocytosis Not Reportable 09/20/20 09:18 Anisocytosis 1+ 09/20/20 09:18 Microcytosis Not Reportable 09/20/20 09:18 Macrocytosis Not Reportable 09/20/20 09:18 Spherocytes Not Reportable 09/20/20 09:18 Pappenheimer Bodies Not Reportable 09/20/20 09:18 Sickle Cells Not Reportable 09/20/20 09:18 Target Cells Not Reportable 09/20/20 09:18 Tear Drop Cells Not Reportable 09/20/20 09:18 Ovalocytes Not Reportable 09/20/20 09:18 Helmet Cells Not Reportable 09/20/20 09:18 [place] Bodies Not Reportable 09/20/20 09:18 [place] Rings Not Reportable 09/20/20 09:18 Viki Cells Not Reportable 09/20/20 09:18 Bite Cells Not Reportable 09/20/20 09:18 Crenated Cell Not Reportable 09/20/20 09:18 Elliptocytes Not Reportable 09/20/20 09:18 Acanthocytes (Spur) Not Reportable 09/20/20 09:18 Rouleaux Not Reportable 09/20/20 09:18 Hemoglobin C Crystals Not Reportable 09/20/20 09:18 Schistocytes Not Reportable 09/20/20 09:18 Malaria parasites Not Reportable 09/20/20 09:18 [place] Bodies Not Reportable 09/20/20 09:18 Hem Pathologist Commnt No 09/20/20 09:18 D-Dimer 475.91 ng/mlDDU (0-234) H 09/21/20 05:36 Sodium 139 mmol/L (137-145) 09/20/20 09:18 Potassium 3.9 mmol/L (3.6-5.0) 09/20/20 09:18 Chloride 101.1 mmol/L (98-107) 09/20/20 09:18 Carbon Dioxide 27 mmol/L (22-30) 09/20/20 09:18 Anion Gap 15 mmol/L 09/20/20 09:18 BUN 11 mg/dL (7-17) 09/20/20 09:18 Creatinine 0.7 mg/dL (0.6-1.2) 09/20/20 09:18 Estimated GFR > 60 ml/min 09/20/20 09:18 BUN/Creatinine Ratio 16 % 09/20/20 09:18 Glucose 74 mg/dL (65-100) 09/20/20 09:18 Hemoglobin A1c 5.1 % (4-6) 09/20/20 09:18 Calcium 9.0 mg/dL (8.4-10.2) 09/20/20 09:18 Ferritin 32.0 ng/mL (10.0-200.0) 09/21/20 05:36 Total Bilirubin 0.50 mg/dL (0.1-1.2) 09/20/20 09:18 AST 25 units/L (5-40) 09/20/20 09:18 ALT 13 units/L (7-56) 09/20/20 09:18 Alkaline Phosphatase 48 units/L (35-129) 09/20/20 09:18 Lactate Dehydrogenase 189 units/L (91-180) H 09/21/20 05:36 Total Creatine Kinase 117 units/L (30-135) 09/20/20 20:46 CK-MB (CK-2) 1.8 ng/mL (0.0-4.0) 09/20/20 20:46 CK-MB (CK-2) Rel Index 1.5 (0-4) 09/20/20 20:46 Troponin T 0.011 ng/mL (0.00-0.029) 09/20/20 20:46 C-Reactive Protein 0.20 mg/dL (0.00-1.30) 09/21/20 05:36 NT-Pro-B Natriuret Pep 121.2 pg/mL (0-450) 09/19/20 00:30 Total Protein 7.1 g/dL (6.3-8.2) 09/20/20 09:18 Albumin 4.1 g/dL (3.9-5) 09/20/20 09:18 Albumin/Globulin Ratio 1.4 % 09/20/20 09:18 Lipase 22 units/L (13-60) 09/19/20 00:30 HCG, Qual Negative (Negative) 09/19/20 00:30 Urine Color Yellow (Yellow) 09/18/20 Unknown Urine Turbidity Slightly-cloudy (Clear) 09/18/20 Unknown Urine pH 5.0 (5.0-7.0) 09/18/20 Unknown Ur Specific [place] 1.017 (1.003-1.030) 09/18/20 Unknown Urine Protein 30 mg/dl mg/dL (Negative) 09/18/20 Unknown Urine Glucose (UA) Neg mg/dL (Negative) 09/18/20 Unknown Urine Ketones Tr mg/dL (Negative) 09/18/20 Unknown Urine Blood Lg (Negative) 09/18/20 Unknown Urine Nitrite Neg (Negative) 09/18/20 Unknown Urine Bilirubin Neg (Negative) 09/18/20 Unknown Urine Urobilinogen < 2.0 mg/dL (<2.0) 09/18/20 Unknown Ur Leukocyte Esterase Sm (Negative) 09/18/20 Unknown Urine WBC (Auto) 45.0 /HPF (0.0-6.0) H 09/18/20 Unknown Urine RBC (Auto) 10.0 /HPF (0.0-6.0) 09/18/20 Unknown U Epithel Cells (Auto) 12.0 /HPF (0-13.0) 09/18/20 Unknown Urine Mucus Few /HPF 09/18/20 Unknown Coronavirus (PCR) Positive (Negative) A 09/20/20 08:37 Microbiology: Microbiology 09/18/20 Unknown Urine,Clean Catch Urine Culture - Final Klebsiella Pneumoniae Ness/IV: Voiding Method Toilet Active Medications - Current Medications Current Medications: Generic Name Dose Route Start Last Admin Trade Name Freq PRN Reason Stop Dose Admin Acetaminophen 650 mg 09/20/20 08:00 Acetaminophen 325 Mg Tab PO Q4H PRN Pain MILD(1-3)/Fever >100.5/YOUNG Famotidine 20 mg 09/20/20 22:00 09/21/20 10:01 Famotidine 20 Mg Tab PO 20 mg BID RYLAND Administration Heparin Sodium (Porcine) 5,000 unit 09/20/20 10:00 09/21/20 10:00 Heparin 5,000 Unit/1 Ml Vial SUB-Q 5,000 unit Q12HR RYLAND Administration Hydromorphone HCl 0.5 mg 09/20/20 08:00 09/21/20 14:25 Hydromorphone 1 Mg/1 Ml Inj IV 0.5 mg Q3H PRN Administration Pain , Severe (7-10) Ceftriaxone Sodium 2 gm in 100 mls @ 200 mls/hr 09/20/20 10:00 09/21/20 09:59 Rocephin/Ns 2 Gm/100 Ml IV 200 mls/hr Q24H RYLAND Administration Protocol Metoclopramide HCl 10 mg 09/20/20 08:00 Metoclopramide 10 Mg/2 Ml Inj IV Q6H PRN Nausea And Vomiting Ondansetron HCl 4 mg 09/20/20 08:00 09/20/20 21:25 Ondansetron 4 Mg/2 Ml Inj IV 4 mg Q8H PRN Administration Nausea And Vomiting Oxycodone/Acetaminophen 1 tab 09/20/20 08:00 Oxycodone /Acetaminophen 5-325mg Tab PO Q6H PRN Pain, Moderate (4-6) Sodium Chloride 10 ml 09/20/20 10:00 09/21/20 10:01 Sodium Chloride 0.9% 10 Ml Flush Syringe IV 10 ml BID RYLAND Administration Sodium Chloride 10 ml 09/20/20 07:07 Sodium Chloride 0.9% 10 Ml Flush Syringe IV PRN PRN LINE FLUSH
--- NOTE | 2020-09-22 08:22 | Progress Note ---
Assessment and Plan Assessment and plan: Patient is saturating well on room air No supplemental oxygen needed --COVID-19 infection Current Visit: Yes Status: Acute Contact and droplet isolation, Donis PCR test positive Isolation precautions Patient is saturating well on room air No indication for dexamethasone No indication for remdesivir Check inflammatory markers ID consult - Intractable nausea and vomiting Current Visit: Yes Status: Acute IV fluids , IV Zofran IV famotidine. Symptoms slightly improved --Sepsis due to urinary tract infection Current Visit: Yes Status: Acute Cultures positive for Klebsiella pneumonia, pansensitive Continue Rocephin, ID following --Atypical chest pain Current Visit: Yes Status: Acute Secondary to reflux Discharge on Protonix --Elevated D-dimers; Current Visit: Yes Status: Acute CTA chest negative for PE Pending lower extremity venous Doppler to rule out DVT --GERD (gastroesophageal reflux disease) Current Visit: Yes Status: Acute On IV Protonix --DVT prophylaxis Current Visit: Yes Status: Acute Subcu heparin and GI prophylaxis Closely monitor patient and adjust management as needed. Follow donis PCR test and adjust the management as needed Plan of care reviewed with the patient and her nurse I called next of kin patient's mother Ms. Shashi Pettit at [phone] and discussed in detail patient's condition treatment plan tests and reports, I also encouraged the close family members to get tested for COVID-19 I answered all her questions and encouraged her to call back if she has any new concerns 09/21/2020; Patient feels slightly better, saturating well room air 100% No indication for remdesivir, dexamethasone and supplemental oxygen However quick check for home O2 prior to discharge 09/22/2020; Patient sats well on room air CTA chest negative for PE Pending LE Doppler study History Interval history: I have seen and examined the patient at the bedside this morning Patient is COVID-19 positive, on contact and droplet isolation Strict isolation precautions and PPE protocols followed per COVID-19 guidelines While evaluating this patient today Patient complains of some nausea Complains of generalized weakness Saturating well on room air Vital signs noted Hospitalist Physical - Constitutional Vitals: Temp Pulse Resp BP Pulse Ox 98.3 F 62 18 131/83 100 09/22/20 06:02 09/22/20 06:00 09/22/20 06:02 09/22/20 06:02 09/22/20 08:03 General appearance: Present: no acute distress, well-nourished, other (Saturating well on room air) - EENT Eyes: Present: PERRL, EOM intact - Neck Neck: Present: supple, normal ROM - Respiratory Respiratory effort: normal Respiratory: bilateral: diminished, rhonchi, negative: rales, wheezing - Cardiovascular Rhythm: regular Heart Sounds: Present: S1 & S2 - Extremities Extremities: no ischemia, No edema - Abdominal General gastrointestinal: soft, non-tender, non-distended, normal bowel sounds - Integumentary Integumentary: Present: clear, warm - Psychiatric Psychiatric: appropriate mood/affect, cooperative - Neurologic Neurologic: moves all extremities HEART Score - HEART Score EKG: Non-specific Age: < 45 Risk factors: > 3 risk factors or hx of atherosclerotic disease Troponin: Troponin T 0.011 ng/mL (0.00-0.029) 09/20/20 20:46 Troponin: < normal limit Results - Labs CBC & Chem 7: 09/20/20 09:18 09/20/20 09:18 Labs: Laboratory Last Values WBC 3.5 K/mm3 (4.5-11.0) L 09/20/20 09:18 RBC 4.33 M/mm3 (3.65-5.03) 09/20/20 09:18 Hgb 11.1 gm/dl (10.1-14.3) 09/20/20 09:18 Hct 33.2 % (30.3-42.9) 09/20/20 09:18 MCV 77 fl (79-97) L 09/20/20 09:18 MCH 26 pg (28-32) L 09/20/20 09:18 MCHC 34 % (30-34) 09/20/20 09:18 RDW 17.0 % (13.2-15.2) H 09/20/20 09:18 Plt Count 158 K/mm3 (140-440) 09/20/20 09:18 Lymph % (Auto) 40.5 % (13.4-35.0) H 09/19/20 00:30 [place] % (Auto) Auditing Clerk 09/20/20 09:18 Eos % (Auto) 0.0 % (0.0-4.3) 09/19/20 00:30 Baso % (Auto) 0.3 % (0.0-1.8) 09/19/20 00:30 Lymph # (Auto) 1.8 K/mm3 (1.2-5.4) 09/19/20 00:30 [place] # (Auto) 0.7 K/mm3 (0.0-0.8) 09/19/20 00:30 Eos # (Auto) 0.0 K/mm3 (0.0-0.4) 09/19/20 00:30 Baso # (Auto) 0.0 K/mm3 (0.0-0.1) 09/19/20 00:30 Add Manual Diff Complete 09/20/20 09:18 Total Counted 100 09/20/20 09:18 Seg Neutrophils % 43.2 % (40.0-70.0) 09/19/20 00:30 Seg Neuts % (Manual) 59.0 % (40.0-70.0) 09/20/20 09:18 Lymphocytes % (Manual) 21.0 % (13.4-35.0) 09/20/20 09:18 Monocytes % (Manual) 20.0 % (0.0-7.3) H 09/20/20 09:18 Nucleated RBC % Not Reportable 09/20/20 09:18 Seg Neutrophils # 1.9 K/mm3 (1.8-7.7) 09/19/20 00:30 Seg Neutrophils # Man 2.1 K/mm3 (1.8-7.7) 09/20/20 09:18 Band Neutrophils # 0.0 K/mm3 09/20/20 09:18 Lymphocytes # (Manual) 0.7 K/mm3 (1.2-5.4) L 09/20/20 09:18 Abs React Lymphs (Man) 0.0 K/mm3 09/20/20 09:18 Monocytes # (Manual) 0.7 K/mm3 (0.0-0.8) 09/20/20 09:18 Eosinophils # (Manual) 0.0 K/mm3 (0.0-0.4) 09/20/20 09:18 Basophils # (Manual) 0.0 K/mm3 (0.0-0.1) 09/20/20 09:18 Metamyelocytes # 0.0 K/mm3 09/20/20 09:18 Myelocytes # 0.0 K/mm3 09/20/20 09:18 Promyelocytes # 0.0 K/mm3 09/20/20 09:18 Blast Cells # 0.0 K/mm3 09/20/20 09:18 WBC Morphology Not Reportable 09/20/20 09:18 Hypersegmented Neuts Not Reportable 09/20/20 09:18 Hyposegmented Neuts Not Reportable 09/20/20 09:18 Hypogranular Neuts Not Reportable 09/20/20 09:18 Smudge Cells Not Reportable 09/20/20 09:18 Toxic Granulation Not Reportable 09/20/20 09:18 Toxic Vacuolation Not Reportable 09/20/20 09:18 Dohle Bodies Not Reportable 09/20/20 09:18 Pelger-Huet Anomaly Not Reportable 09/20/20 09:18 [place] Rods Not Reportable 09/20/20 09:18 Platelet Estimate Consistent w auto 09/20/20 09:18 Clumped Platelets Not Reportable 09/20/20 09:18 Plt Clumps, EDTA Not Reportable 09/20/20 09:18 Large Platelets Not Reportable 09/20/20 09:18 Giant Platelets Not Reportable 09/20/20 09:18 Platelet Satelliting Not Reportable 09/20/20 09:18 Plt Morphology Comment Not Reportable 09/20/20 09:18 RBC Morphology Not Reportable 09/20/20 09:18 Dimorphic RBCs Not Reportable 09/20/20 09:18 Polychromasia Not Reportable 09/20/20 09:18 Hypochromasia Not Reportable 09/20/20 09:18 Poikilocytosis Not Reportable 09/20/20 09:18 Anisocytosis 1+ 09/20/20 09:18 Microcytosis Not Reportable 09/20/20 09:18 Macrocytosis Not Reportable 09/20/20 09:18 Spherocytes Not Reportable 09/20/20 09:18 Pappenheimer Bodies Not Reportable 09/20/20 09:18 Sickle Cells Not Reportable 09/20/20 09:18 Target Cells Not Reportable 09/20/20 09:18 Tear Drop Cells Not Reportable 09/20/20 09:18 Ovalocytes Not Reportable 09/20/20 09:18 Helmet Cells Not Reportable 09/20/20 09:18 [place] Bodies Not Reportable 09/20/20 09:18 [place] Rings Not Reportable 09/20/20 09:18 [place] Cells Not Reportable 09/20/20 09:18 Bite Cells Not Reportable 09/20/20 09:18 Crenated Cell Not Reportable 09/20/20 09:18 Elliptocytes Not Reportable 09/20/20 09:18 Acanthocytes (Spur) Not Reportable 09/20/20 09:18 Rouleaux Not Reportable 09/20/20 09:18 Hemoglobin C Crystals Not Reportable 09/20/20 09:18 Schistocytes Not Reportable 09/20/20 09:18 Malaria parasites Not Reportable 09/20/20 09:18 [place] Bodies Not Reportable 09/20/20 09:18 Hem Pathologist Commnt No 09/20/20 09:18 D-Dimer 475.91 ng/mlDDU (0-234) H 09/21/20 05:36 Sodium 139 mmol/L (137-145) 09/20/20 09:18 Potassium 3.9 mmol/L (3.6-5.0) 09/20/20 09:18 Chloride 101.1 mmol/L (98-107) 09/20/20 09:18 Carbon Dioxide 27 mmol/L (22-30) 09/20/20 09:18 Anion Gap 15 mmol/L 09/20/20 09:18 BUN 11 mg/dL (7-17) 09/20/20 09:18 Creatinine 0.7 mg/dL (0.6-1.2) 09/20/20 09:18 Estimated GFR > 60 ml/min 09/20/20 09:18 BUN/Creatinine Ratio 16 % 09/20/20 09:18 Glucose 74 mg/dL (65-100) 09/20/20 09:18 Hemoglobin A1c 5.1 % (4-6) 09/20/20 09:18 Calcium 9.0 mg/dL (8.4-10.2) 09/20/20 09:18 Ferritin 32.0 ng/mL (10.0-200.0) 09/21/20 05:36 Total Bilirubin 0.50 mg/dL (0.1-1.2) 09/20/20 09:18 AST 25 units/L (5-40) 09/20/20 09:18 ALT 13 units/L (7-56) 09/20/20 09:18 Alkaline Phosphatase 48 units/L (35-129) 09/20/20 09:18 Lactate Dehydrogenase 189 units/L (91-180) H 09/21/20 05:36 Total Creatine Kinase 117 units/L (30-135) 09/20/20 20:46 CK-MB (CK-2) 1.8 ng/mL (0.0-4.0) 09/20/20 20:46 CK-MB (CK-2) Rel Index 1.5 (0-4) 09/20/20 20:46 Troponin T 0.011 ng/mL (0.00-0.029) 09/20/20 20:46 C-Reactive Protein 0.20 mg/dL (0.00-1.30) 09/21/20 05:36 NT-Pro-B Natriuret Pep 121.2 pg/mL (0-450) 09/19/20 00:30 Total Protein 7.1 g/dL (6.3-8.2) 09/20/20 09:18 Albumin 4.1 g/dL (3.9-5) 09/20/20 09:18 Albumin/Globulin Ratio 1.4 % 09/20/20 09:18 Lipase 22 units/L (13-60) 09/19/20 00:30 HCG, Qual Negative (Negative) 09/19/20 00:30 Urine Color Yellow (Yellow) 09/18/20 Unknown Urine Turbidity Slightly-cloudy (Clear) 09/18/20 Unknown Urine pH 5.0 (5.0-7.0) 09/18/20 Unknown Ur Specific [place] 1.017 (1.003-1.030) 09/18/20 Unknown Urine Protein 30 mg/dl mg/dL (Negative) 09/18/20 Unknown Urine Glucose (UA) Neg mg/dL (Negative) 09/18/20 Unknown Urine Ketones Tr mg/dL (Negative) 09/18/20 Unknown Urine Blood Lg (Negative) 09/18/20 Unknown Urine Nitrite Neg (Negative) 09/18/20 Unknown Urine Bilirubin Neg (Negative) 09/18/20 Unknown Urine Urobilinogen < 2.0 mg/dL (<2.0) 09/18/20 Unknown Ur Leukocyte Esterase Sm (Negative) 09/18/20 Unknown Urine WBC (Auto) 45.0 /HPF (0.0-6.0) H 09/18/20 Unknown Urine RBC (Auto) 10.0 /HPF (0.0-6.0) 09/18/20 Unknown U Epithel Cells (Auto) 12.0 /HPF (0-13.0) 09/18/20 Unknown Urine Mucus Few /HPF 09/18/20 Unknown Coronavirus (PCR) Positive (Negative) A 09/20/20 08:37 Microbiology: Microbiology 09/18/20 Unknown Urine,Clean Catch Urine Culture - Final Klebsiella Pneumoniae Ness/IV: Voiding Method Toilet Active Medications - Current Medications Current Medications: Generic Name Dose Route Start Last Admin Trade Name Freq PRN Reason Stop Dose Admin Acetaminophen 650 mg 09/20/20 08:00 Acetaminophen 325 Mg Tab PO Q4H PRN Pain MILD(1-3)/Fever >100.5/YOUNG Famotidine 20 mg 09/20/20 22:00 09/21/20 21:42 Famotidine 20 Mg Tab PO 20 mg BID RYLAND Administration Heparin Sodium (Porcine) 5,000 unit 09/20/20 10:00 09/21/20 21:43 Heparin 5,000 Unit/1 Ml Vial SUB-Q 5,000 unit Q12HR RYLAND Administration Hydromorphone HCl 0.5 mg 09/20/20 08:00 09/21/20 14:25 Hydromorphone 1 Mg/1 Ml Inj IV 0.5 mg Q3H PRN Administration Pain , Severe (7-10) Ceftriaxone Sodium 2 gm in 100 mls @ 200 mls/hr 09/20/20 10:00 09/21/20 09:59 Rocephin/Ns 2 Gm/100 Ml IV 200 mls/hr Q24H RYLAND Administration Protocol Metoclopramide HCl 10 mg 09/20/20 08:00 Metoclopramide 10 Mg/2 Ml Inj IV Q6H PRN Nausea And Vomiting Ondansetron HCl 4 mg 09/20/20 08:00 09/20/20 21:25 Ondansetron 4 Mg/2 Ml Inj IV 4 mg Q8H PRN Administration Nausea And Vomiting Oxycodone/Acetaminophen 1 tab 09/20/20 08:00 09/21/20 21:42 Oxycodone /Acetaminophen 5-325mg Tab PO 1 tab Q6H PRN Administration Pain, Moderate (4-6) Sodium Chloride 10 ml 09/20/20 10:00 09/21/20 22:05 Sodium Chloride 0.9% 10 Ml Flush Syringe IV Not Given BID RYLAND Sodium Chloride 10 ml 09/20/20 07:07 Sodium Chloride 0.9% 10 Ml Flush Syringe IV PRN PRN LINE FLUSH
[2020-09-22] MEDS: HEPARIN 5,000 UNIT/1 ML VIAL SUB-Q SCH ×2 (09:30→21:10)
[2020-09-22] MEDS: cefTRIAXone/NS 2 GM/100 ML 2 GM/100 ML BAG IV SCH (09:30)
[2020-09-22] MEDS: FAMOTIDINE 20 MG TAB PO SCH ×2 (09:31→21:10)
--- NOTE | 2020-09-22 09:32 | Consultation ---
History of Present Illness - Reason for Consult Consult date: 09/22/20 - History of Present Illness 29-year female no past medical history presented to hospital complaining of nausea. This began 1 day prior to admission and had about 3 or 4 times. She complained of chest pain to the reflux, but otherwise denies any symptoms. Afebrile, white count 3.4. Elevated D-dimer. Normal renal function. Covid positive. Urine cultures with Klebsiella pneumonia currently on ceftriaxone. On room air. Imaging personally reviewed: Chest CTA: No PE. Positive for bibasilar groundglass densities Review of systems: Deferred to reduce to the risk of transmission of COVID-19 Past History Past Medical History: No medical history Past Surgical History: No surgical history Social history: lives with family, full code Family history: hypertension Medications and Allergies Allergies Allergy/AdvReac Type Severity Reaction Status Date / Time No Known Allergies Allergy Verified 01/02/15 13:22 Home Medications Medication Instructions Recorded Confirmed Last Taken Type Ondansetron [Zofran Odt] 4 mg PO Q6H PRN 01/02/15 09/20/20 01/01/15 History Active Meds: Active Medications Acetaminophen (Acetaminophen 325 Mg Tab) 650 mg PO Q4H PRN PRN Reason: Pain MILD(1-3)/Fever >100.5/YOUNG Famotidine (Famotidine 20 Mg Tab) 20 mg PO BID [facility] Last Admin: 09/21/20 21:42 Dose: 20 mg Documented by: Heparin Sodium (Porcine) (Heparin 5,000 Unit/1 Ml Vial) 5,000 unit SUB-Q Q12HR [facility] Last Admin: 09/21/20 21:43 Dose: 5,000 unit Documented by: Hydromorphone HCl (Hydromorphone 1 Mg/1 Ml Inj) 0.5 mg IV Q3H PRN PRN Reason: Pain , Severe (7-10) Last Admin: 09/21/20 14:25 Dose: 0.5 mg Documented by: Ceftriaxone Sodium (Rocephin/Ns 2 Gm/100 Ml) 2 gm in 100 mls @ 200 mls/hr IV Q24H RYLAND; Protocol Last Admin: 09/21/20 09:59 Dose: 200 mls/hr Documented by: Metoclopramide HCl (Metoclopramide 10 Mg/2 Ml Inj) 10 mg IV Q6H PRN PRN Reason: Nausea And Vomiting Ondansetron HCl (Ondansetron 4 Mg/2 Ml Inj) 4 mg IV Q8H PRN PRN Reason: Nausea And Vomiting Last Admin: 09/20/20 21:25 Dose: 4 mg Documented by: Oxycodone/Acetaminophen (Oxycodone /Acetaminophen 5-325mg Tab) 1 tab PO Q6H PRN PRN Reason: Pain, Moderate (4-6) Last Admin: 09/21/20 21:42 Dose: 1 tab Documented by: Sodium Chloride (Sodium Chloride 0.9% 10 Ml Flush Syringe) 10 ml IV BID RYLAND Last Admin: 09/21/20 22:05 Dose: Not Given Documented by: Sodium Chloride (Sodium Chloride 0.9% 10 Ml Flush Syringe) 10 ml IV PRN PRN PRN Reason: LINE FLUSH Physical Examination - Physical Exam Narrative exam: Physical exam deferred to reduce risk of transmission of COVID-19. Please refer to primary team's note. - Constitutional Vitals: Vital Signs Temp Pulse Resp BP Pulse Ox 98.3 F 62 18 131/83 100 09/22/20 06:02 09/22/20 06:00 09/22/20 06:02 09/22/20 06:02 09/22/20 08:03 Temperature -Last 24 Hours Temperature 98.3 F Temperature 97.9 F Temperature 98.3 F Results - Labs CBC & Chem 7: 09/20/20 09:18 09/20/20 09:18 Labs: Abnormal lab results 09/20/20 Range/Units 08:37 Coronavirus (PCR) Positive A (Negative) Assessment and Plan Cultures: Urine culture Klebsiella pneumonia Covid PCR: Positive A/P: 21-year-old female no past medical history admitted with nausea and vomiting, found to have COVID-19. #COVID-19 pneumonia: As seen on imaging, however patient compensating well with no hypoxia. No acute treatment necessary. #Gastroenteritis: Secondary to COVID-19. Symptomatic therapy #Leukopenia: Likely secondary to COVID-19 #UTI: Cultures with Klebsiella Recs: -Complete 3 days ceftriaxone for UTI -No need for acute Covid therapy -If she develops hypoxia, start remdesivir and dexamethasone Thank you for the consult, we will continue to follow. Nitin Her MD [facility] ([facility]) O: [phone] F: [phone]
[2020-09-22] MEDS ORDERED: guaiFENesin 100 MG/5 ML ORAL LIQD PO PRN (14:28)
[2020-09-23 05:19] VITALS: BP 109/67
--- NOTE | 2020-09-23 12:15 | Progress Note ---
Assessment and Plan Cultures: Urine culture Klebsiella pneumonia Covid PCR: Positive A/P: 21-year-old female no past medical history admitted with nausea and vomiting, found to have COVID-19. #COVID-19 pneumonia: As seen on imaging, however patient compensating well with no hypoxia. No acute treatment necessary. #Gastroenteritis: Secondary to COVID-19. Symptomatic therapy #Leukopenia: Likely secondary to COVID-19 #UTI: Cultures with Klebsiella Recs: -Completed antibiotics for UTI. -No need for acute Covid therapy -If she develops hypoxia, start remdesivir and dexamethasone Thank you for the consult, we will continue to follow. Nitin Her MD [facility] ([facility]) O: [phone] F: [phone] Subjective Date of service: 09/23/20 Interval history: Afebrile, white count 3.4. Objective - Exam Narrative Exam: Physical exam deferred to reduce risk of transmission of COVID-19. Please refer to primary team's note. - Constitutional Vitals: Vital Signs Temp Pulse Resp BP Pulse Ox 97.8 F 78 16 109/67 98 09/23/20 04:39 09/23/20 04:39 09/23/20 04:39 09/23/20 04:39 09/23/20 04:39 Temperature -Last 24 Hours Temperature 97.8 F Temperature 98.2 F Temperature 98.1 F - Labs CBC & Chem 7: 09/20/20 09:18 09/20/20 09:18
--- NOTE | 2020-09-23 12:40 | Vascular Lab Report ---
DUPLEX DOPPLER LOWER EXTREMITY VEINS, BILATERAL INDICATION: Elevated D-dimers/COVID-19/rule out DVT. TECHNIQUE: Duplex doppler imaging was performed through the veins of both lower extremities using ve nous compression and other maneuvers. COMPARISON: No relevant prior imaging study available. FINDINGS: Right Common femoral vein: Negative. Right Superficial femoral vein: Negative. Right Popliteal vein: Negative. Right Calf veins: Negative. Left Common femoral vein: Negative. Left Superficial femoral vein: Negative. Left Popliteal vein: Negative. Left Calf veins: Negative. Additional findings: None. IMPRESSION: No sonographic evidence for DVT in either lower extremity. Signer Name: Jamie Javier Jr, MD Signed: 09/23/2020 12:36 PM Workstation Name: [id number]
[2020-09-23] MEDS: HEPARIN 5,000 UNIT/1 ML VIAL SUB-Q SCH (14:04)
[2020-09-23] MEDS: FAMOTIDINE 20 MG TAB PO SCH (14:05)
--- NOTE | 2020-09-23 15:09 | Discharge Summary ---
Providers - Providers Date of Admission: 09/20/20 16:43 Date of discharge: 09/23/20 Attending physician: LEXI PATEL 09/20/20 15:47 Consult to Physician [CONS] Routine Comment: Consulting Provider: DARREN VALENTINO Physician Instructions: Reason For Exam: PUI /donis PCR test positive Primary care physician: PROGRESS WORKER Hospitalization Condition: Stable Pertinent studies: CTA chest negative for PE Lower extremity venous Doppler; negative for DVT Chest x-ray No acute abnormality Hospital course: --COVID-19 infection Current Visit: Yes Status: Acute Contact and droplet isolation, Donis PCR test positive Isolation precautions Patient is saturating well on room air No indication for dexamethasone No indication for remdesivir Check inflammatory markers ID consult - Intractable nausea and vomiting Current Visit: Yes Status: Acute IV fluids , IV Zofran IV famotidine. Symptoms slightly improved --Sepsis due to urinary tract infection Current Visit: Yes Status: Acute Cultures positive for Klebsiella pneumonia, pansensitive Continue Rocephin, ID following --Atypical chest pain Current Visit: Yes Status: Acute Secondary to reflux Discharge on Protonix --Elevated D-dimers; Current Visit: Yes Status: Acute CTA chest negative for PE Pending lower extremity venous Doppler to rule out DVT --GERD (gastroesophageal reflux disease) Current Visit: Yes Status: Acute On IV Protonix Disposition: DC- TO HOME OR SELFCARE Final Discharge Diagnosis (Prints w/discharge instructions): COVID-19 infection. Intractable nausea vomiting improved. Atypical chest pain resolved. Elevated D-dimers negative for PE and DVT. GERD Time spent for discharge: 35 min Core Measure Documentation - Palliative Care Palliative Care/ Comfort Measures: Not Applicable - Core Measures Any of the following diagnoses?: none Exam - Constitutional Vitals: Temp Pulse Resp BP Pulse Ox 97.8 F 78 16 109/67 98 09/23/20 04:39 09/23/20 04:39 09/23/20 04:39 09/23/20 04:39 09/23/20 04:39 General appearance: Present: no acute distress, well-nourished - EENT Eyes: Present: PERRL, EOM intact - Neck Neck: Present: supple, normal ROM - Respiratory Respiratory effort: normal Respiratory: bilateral: diminished, negative: rales, rhonchi, wheezing - Cardiovascular Rhythm: regular Heart Sounds: Present: S1 & S2 - Extremities Extremities: no ischemia, No edema - Abdominal General gastrointestinal: Present: soft, non-tender, non-distended, normal bowel sounds - Integumentary Integumentary: Present: clear, warm - Musculoskeletal Musculoskeletal: strength equal bilaterally, generalized weakness - Psychiatric Psychiatric: appropriate mood/affect, cooperative - Neurologic Neurologic: CNII-XII intact, moves all extremities Plan Activity: advance as tolerated Diet: regular Additional Instructions: Advised to follow Covid precautions and protocols instructed by the discharge nurse. Masking, social distancing, handwashing, isolation per Covid guidelines. If you have worsening symptoms contact MD, or go to the nearest emergency room as needed Follow up with: PRIMARY CARE,MD [Primary Care Provider] - 3-5 Days Prescriptions: Famotidine [Pepcid] 20 mg PO BID #30 tablet guaiFENesin [Robitussin] 5 ml PO Q4H PRN #1 bottle PRN Reason: Cough Ascorbic Acid [Vitamin C chew] 500 mg PO BID #30 tab.chew Zinc Sulfate 0 mg PO BID #30 capsule
== END 2020-09-23 19:59 | disposition home or self-care (01) | DRG 871 ==
LOC: ED 19:19 → 3A 09-19 07:28 → INTOOBSV 09-19 07:28 → 4A 09-19 23:45 → 3A 09-20 16:27 → OBSVTOIN 09-20 16:43
PROVIDERS: ADMIT Internal Medicine; ATTEND Internal Medicine
DX: A41.89 Other specified sepsis (principal); U07.1 COVID-19; J12.82 Pneumonia due to coronavirus disease 2019; N39.0 Urinary tract infection, site not specified; K52.9 Noninfective gastroenteritis and colitis, unspecified; D72.819 Decreased white blood cell count, unspecified; K21.9 Gastro-esophageal reflux disease without esophagitis; I10 Essential (primary) hypertension; I25.2 Old myocardial infarction; Z82.49 Family history of ischemic heart disease and other diseases of the circulatory system; Z79.899 Other long term (current) drug therapy
CPT/HCPCS: 36415; 71046; 71275; 80053; 81001; 82550; 82553; 82728; 83036; 83615; 83690; 83880; 84145; 84484; 84703; 85007; 85025; 85379; 86140; 87076; 87086; 87186; 93005; 93970; G0378; J0696; J1170; J1644; J2405; J7030; Q9967; U0003

== ENCOUNTER 2021-09-15 07:45 | Emergency (ER) | payer MEDICAID, OTHER ==
[2021-09-15 08:00] VITALS: BP 127/82
--- NOTE | 2021-09-15 09:53 | Consultation ---
History of Present Illness - Reason for Consult Consult date: 09/15/21 Reason for consult: violent outbursts - History of Present Psychiatric Illness The patient was seen today. She is uncooperative and would not participate in the evaluation. The patient presented with violent outbursts and destruction of property, per report from homeopathic doctor. Will start treatment and recommend acute psychiatric inpatient treatment until able to evaluate the patient. PAST PSYCHIATRIC HISTORY: Unable to obtain PAST MEDICAL HISTORY: None reported Family Psychiatric History: None reported or documented SOCIAL HISTORY Unable to obtain REVIEW OF SYSTEMS Unable to obtain MENTAL STATUS Unable to obtain Diagnoses: Unspecified Mood Disorder Treatment Plan [address] 125mg po BID Abilify 5mg po daily Trazodone 50mg po qhs Sitter: Defer to primary Medical: per primary Disposition: recommend acute psychiatric inpatient treatment Will follow. Thanks Case staffed with Dr. Gardner Medications and Allergies Allergies Allergy/AdvReac Type Severity Reaction Status Date / Time No Known Allergies Allergy Verified 09/15/21 08:00 Home Medications Medication Instructions Recorded Confirmed Last Taken Type Ondansetron [Zofran Odt] 4 mg PO Q6H PRN 01/02/15 09/20/20 01/01/15 History Ascorbic Acid [Vitamin C chew] 500 mg PO BID #30 tab.chew 09/23/20 Unknown Rx Famotidine [Pepcid] 20 mg PO BID #30 tablet 09/23/20 Unknown Rx Zinc Sulfate 0 mg PO BID #30 capsule 09/23/20 Unknown Rx guaiFENesin [Robitussin] 5 ml PO Q4H PRN #1 bottle 09/23/20 Unknown Rx Mental Status Exam - Vital signs Last Vital Signs Temp 98.4 F 09/15/21 07:51 Pulse 96 H 09/15/21 07:51 Resp 18 09/15/21 07:51 BP 127/82 09/15/21 07:51 Pulse Ox 98 09/15/21 07:51 Results All other labs normal.
[2021-09-15] MEDS ORDERED: ARIPiprazole 5 MG TAB PO SCH (10:00)
[2021-09-15] MEDS ORDERED: DIVALPROEX DR 125 MG TAB PO SCH (10:00)
--- NOTE | 2021-09-15 11:14 | Event Note ---
Date: 09/15/21 vss no events overnight , blood work not back yet , seen by psych , recommend acute psych transfer
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
[2021-09-15 12:58] LABS: Basophils # (Auto) 0.1 K/mm3 (0.0-0.1); Basophils % (Auto) 0.7 % (0.0-1.8); Eosinophils % (Auto) 0.3 % (0.0-4.3); Hematocrit 34.4 % (30.3-42.9); Hemoglobin 11.7 gm/dl (10.1-14.3); Lymphocytes # (Auto) 2.2 K/mm3 (1.2-5.4); Lymphocytes % (Auto) 30.6 % (13.4-35.0); Mean Corpuscular HGB Conc 34 % (30-34); Mean Corpuscular Volume 80 fl (79-97); Monocytes # (Auto) 0.7 K/mm3 (0.0-0.8); Monocytes % (Auto) 10.3 % (0.0-7.3); Platelet Count 227 K/mm3 (140-440); Red Blood Count 4.29 M/mm3 (3.65-5.03); Red Cell Distribution Width 17.1 % (13.2-15.2)
[2021-09-15 13:27] LABS: BUN/Creatinine Ratio 19; Blood Urea Nitrogen 15 mg/dL (7-17); Calcium 9.5 mg/dL (8.4-10.2); Hemolysis Index 4
[2021-09-15] MEDS ORDERED: traZODone 50 MG TAB PO SCH (22:00)
== END 2021-09-15 16:24 ==
LOC: ED 07:45
DX: F29 Unspecified psychosis not due to a substance or known physiological condition (principal); I11.0 Hypertensive heart disease with heart failure; I50.9 Heart failure, unspecified; F20.9 Schizophrenia, unspecified; F31.9 Bipolar disorder, unspecified; Z98.890 Other specified postprocedural states; Z79.899 Other long term (current) drug therapy
CPT/HCPCS: 36415; 80048; 80320; 84703; 85025; 99285; G0480